=== PATIENT | female | born 1940 | race Caucasian/White ===

== ENCOUNTER 2019-08-01 14:00 | Emergency (ER) | payer OTHER ==
[~2019-08-01] VITALS: Ht 160 cm; Wt 81.6 kg
[2019-08-01] MEDS ORDERED: ONDANSETRON ODT 4 MG TAB PO ONE (19:00)
[2019-08-01] MEDS ORDERED: cloNIDine HCL 0.1 MG TAB PO ONE (19:00)
[2019-08-01] MEDS ORDERED: ACETAMINOPHEN 325 MG TAB PO ONE (19:00)
[2019-08-01 19:45] VITALS: BP 174/90
== END 2019-08-01 19:46 | disposition home or self-care (01) ==
LOC: EDBD 14:00 → ER 14:27
DX: J06.9 Acute upper respiratory infection, unspecified (principal); B34.9 Viral infection, unspecified; E11.9 Type 2 diabetes mellitus without complications; I10 Essential (primary) hypertension; Z88.5 Allergy status to narcotic agent
CPT/HCPCS: 99284; Q0162

== ENCOUNTER 2020-03-23 16:37 | Emergency (ER) | payer OTHER ==
[~2020-03-23] VITALS: Ht 162.6 cm; Wt 72.6 kg
[2020-03-23] MEDS ORDERED: hydrALAZINE HCL 25 MG TAB PO ONE (17:30)
[2020-03-23] MEDS ORDERED: ONDANSETRON HCL 4 MG/2 ML VIAL IV ONE (17:45)
[2020-03-23 18:17] LABS: Basophils # (auto) 0.1 10 ^3/uL (0-0.2); Basophils % (auto) 0.8 % (0.0-2.0); Eosinophils # (auto) 0.1 10 ^3/uL (0-0.8); Eosinophils % (auto) 0.7 % (0.0-7.0); Hematocrit 45.2 % (36.0-46.0); Hemoglobin 15.2 g/dL (12.2-16.2); Lymphocytes # (auto) 1.1 10 ^3/uL (0.4-5.4); Lymphocytes % (auto) 12.1 % (10.0-50.0); Mean Corpuscular Hemoglobin 31.1 pg (28.0-32.0); Mean Corpuscular Hgb Conc. 33.7 g/dL (32.0-36.0); Mean Corpuscular Volume 92.2 fL (80.0-100.0); Monocytes # (auto) 0.5 10 ^3/uL (0-1.3); Monocytes % (auto) 5.4 % (0.0-12.0); Neutrophils # (auto) 7.3 10 ^3/uL (1.6-8.6); Platelet Count (auto) 304 10^3/uL (140-450); Red Cell Distribution Width 13.9 % (11.8-14.3)
[2020-03-23 18:29] LABS: Urine Bacteria FEW /hpf (None Seen); Urine Blood Negative /uL (Negative); Urine Specific Gravity 1.005 (1.001-1.035); Urine WBC 2 /hpf (0 - 5)
[2020-03-23 18:32] LABS: Alanine Aminotransferase 14 U/L (13-56); Anion Gap 10 (5-15); Aspartate Aminotransferase 13 U/L (15-37); BUN/Creatinine Ratio 14.3; Blood Urea Nitrogen 13 mg/dL (7-18); Calcium 9.8 mg/dL (8.5-10.1); Carbon Dioxide 25 mmol/L (21-32); Chloride 106 mmol/L (98-107); GFR African American 77 mL/min; GFR Non-African American 64 mL/min; Glucose 130 mg/dL (74-106); Potassium 3.4 mmol/L (3.5-5.1); Sodium 141 mmol/L (136-145)
[2020-03-23 18:36] LABS: Alkaline Phosphatase 96 U/L (45-117); Bilirubin, Total 0.6 mg/dL (0.2-1.0); Total Protein 7.6 g/dL (6.4-8.2)
[2020-03-23 19:10] VITALS: BP 157/82
== END 2020-03-23 21:33 | disposition home or self-care (01) ==
LOC: EDBD 16:37 → ER 16:37
DX: I16.0 Hypertensive urgency (principal); E11.9 Type 2 diabetes mellitus without complications; I10 Essential (primary) hypertension; E78.5 Hyperlipidemia, unspecified; Z88.5 Allergy status to narcotic agent
CPT/HCPCS: 36415; 70450; 80053; 81001; 84484; 85025; 93005; 96374; 99285; J2405

== ENCOUNTER 2020-09-27 16:08 | Observation (INO) | payer OTHER ==
[~2020-09-27] VITALS: Ht 162.6 cm; Wt 83.2 kg
[2020-09-27 17:58] LABS: Basophils # (auto) 0 10 ^3/uL (0-0.2); Basophils % (auto) 0.3 % (0.0-2.0); Eosinophils # (auto) 0 10 ^3/uL (0-0.8); Hematocrit 44.9 % (36.0-46.0); Hemoglobin 14.8 g/dL (12.2-16.2); Lymphocytes % (auto) 7.1 % (10.0-50.0); Mean Corpuscular Hgb Conc. 33.1 g/dL (32.0-36.0); Mean Corpuscular Volume 90.9 fL (80.0-100.0); Monocytes # (auto) 0.8 10 ^3/uL (0-1.3); Monocytes % (auto) 5.8 % (0.0-12.0); Neutrophils # (auto) 11.7 10 ^3/uL (1.6-8.6); Neutrophils % (auto) 86.8 % (37.0-80.0); Nucleated Red Blood Cells % 0.1 %; Platelet Count (auto) 306 10^3/uL (140-450); Red Blood Cells 4.94 10^6/uL (4.0-5.20); Red Cell Distribution Width 13.9 % (11.8-14.3); White Blood Cell 13.5 10^3/uL (4.4-10.8)
[2020-09-27] MEDS ORDERED: SODIUM CHLORIDE 0.9% 500 ML IV ONE (18:15)
[2020-09-27 18:19] LABS: Albumin 3.7 g/dL (3.4-5.0); Anion Gap 11 (5-15); Blood Alcohol < 3.0 mg/dL (0-5); Blood Urea Nitrogen 24 mg/dL (7-18); Calcium 9.7 mg/dL (8.5-10.1); Carbon Dioxide 24 mmol/L (21-32); Chloride 102 mmol/L (98-107); Glucose 179 mg/dL (74-106); Magnesium 2.1 mg/dL (1.6-2.6); Potassium 3.4 mmol/L (3.5-5.1); Salicylate < 1.7 mg/dL (2.8-20.0); Sodium 137 mmol/L (136-145)
[2020-09-27 18:24] LABS: Alanine Aminotransferase 21 U/L (13-56); Alkaline Phosphatase 88 U/L (45-117); Aspartate Aminotransferase 18 U/L (15-37); BUN/Creatinine Ratio 23.3; Bilirubin, Total 0.7 mg/dL (0.2-1.0); GFR African American 66 mL/min; GFR Non-African American 55 mL/min; Total Protein 7.2 g/dL (6.4-8.2)
[2020-09-27 18:27] LABS: Acetaminophen < 2.0 ug/mL (10-30)
[2020-09-27] MEDS ORDERED: ONDANSETRON HCL 4 MG/2 ML VIAL IV ONE (19:30)
[2020-09-27] MEDS ORDERED: ONDANSETRON HCL 4 MG/2 ML VIAL ONE (19:31)
[2020-09-27] MEDS ORDERED: SODIUM CHLORIDE 0.9% 1,000 ML IV ONE (20:30)
[2020-09-27] MEDS ORDERED: NITROGLYCERIN 0.4 MG SL TAB SL PRN (20:30)
[2020-09-27 23:33] LABS: Urine Bacteria MANY /hpf (None Seen); Urine Blood Negative /uL (Negative); Urine Hyaline Cast MANY /lpf (0 - 2); Urine Mucus FEW (None Seen); Urine Specific Gravity 1.026 (1.001-1.035); Urine WBC 15 /hpf (0 - 5)
[2020-09-27 23:48] LABS: Alcohol, Urine < 3.0 mg/dL (0-10); Barbiturate Scree,Urine NEGATIVE (NEGATIVE); Benzodiazephine Screen, Urine NEGATIVE (NEGATIVE); Cannabinoid Screen, Urine NEGATIVE (NEGATIVE); Cocaine Screen, Urine NEGATIVE (NEGATIVE); Opiate Scree,Urine NEGATIVE (NEGATIVE); Phencyclidine Screen, Urine NEGATIVE (NEGATIVE)
[2020-09-27 23:59] LABS: Amphetamine Screen, Urine NEGATIVE (NEGATIVE)
[2020-09-28] MEDS ORDERED: cloNIDine HCL 0.1 MG TAB PO ONE (06:45)
[2020-09-28 09:16] VITALS: BP 159/74
[2020-09-28] MEDS: cefTRIAXone 1GM/50ML D5W 50 ML IV SCH (10:00)
[2020-09-28] MEDS: SOD CHL 0.45% 1,000 ML IV SCH (10:01)
[2020-09-28 11:30] VITALS: BP 159/74
[2020-09-28 12:46] VITALS: BP 150/64
[2020-09-28] MEDS ORDERED: PRAV20TA3 PO (12:54)
[2020-09-28] MEDS ORDERED: METO25TA93 PO (12:54)
[2020-09-28] MEDS ORDERED: METF-370 PO (12:54)
[2020-09-28] MEDS ORDERED: VALS40TA2 PO (12:54)
[2020-09-28] MEDS ORDERED: FLUO-125 PO (12:54)
[2020-09-28] MEDS ORDERED: METO1TAB77 PO (12:54)
[2020-09-28] MEDS ORDERED: LISI-648 PO (12:54)
[2020-09-28 16:50] VITALS: BP 161/79
[2020-09-28 21:33] VITALS: BP 194/83
[2020-09-28] MEDS: hydrALAZINE HCL 20 MG/ML VL IV PRN (21:55)
[2020-09-28 23:32] VITALS: BP 154/74
[2020-09-29] MEDS: hydrALAZINE HCL 20 MG/ML VL IV PRN ×2 (04:33→13:37)
[2020-09-29] MEDS: SOD CHL 0.45% 1,000 ML IV SCH (04:45)
[2020-09-29 05:00] VITALS: BP 182/79
[2020-09-29] MEDS ORDERED: ACETAMINOPHEN 325 MG TAB PO PRN (05:30)
[2020-09-29 05:44] VITALS: BP 157/77
[2020-09-29 07:19] LABS: Basophils # (auto) 0.1 10 ^3/uL (0-0.2); Basophils % (auto) 0.9 % (0.0-2.0); Eosinophils # (auto) 0.1 10 ^3/uL (0-0.8); Eosinophils % (auto) 1.2 % (0.0-7.0); Hematocrit 43.8 % (36.0-46.0); Hemoglobin 15.1 g/dL (12.2-16.2); Lymphocytes # (auto) 2.4 10 ^3/uL (0.4-5.4); Lymphocytes % (auto) 23.9 % (10.0-50.0); Mean Corpuscular Hemoglobin 31.3 pg (28.0-32.0); Mean Corpuscular Hgb Conc. 34.5 g/dL (32.0-36.0); Mean Corpuscular Volume 90.7 fL (80.0-100.0); Monocytes % (auto) 9.5 % (0.0-12.0); Neutrophils # (auto) 6.4 10 ^3/uL (1.6-8.6); Neutrophils % (auto) 64.5 % (37.0-80.0); Nucleated Red Blood Cells % 0.1 %; Platelet Count (auto) 291 10^3/uL (140-450); Red Blood Cells 4.83 10^6/uL (4.0-5.20); Red Cell Distribution Width 13.8 % (11.8-14.3)
[2020-09-29 07:42] LABS: Potassium 3.8 mmol/L (3.5-5.1)
[2020-09-29 07:47] LABS: BUN/Creatinine Ratio 29.8; Calcium 9.3 mg/dL (8.5-10.1)
[2020-09-29 09:00] VITALS: BP 160/75
[2020-09-29] MEDS: cefTRIAXone 1GM/50ML D5W 50 ML IV SCH (11:35)
[2020-09-29] MEDS ORDERED: ONDANSETRON HCL 4 MG/2 ML VIAL IV PRN (12:30)
[2020-09-29 13:00] VITALS: BP 160/75
[2020-09-29 15:24] VITALS: BP 160/75
== END 2020-09-29 17:00 | disposition home health service (06) ==
LOC: EDBD 16:08 → ER 16:08 → TELE 20:29 → INTOOBSV 20:29 → TELE-WESTW 09-28 08:59
PROVIDERS: ADMIT Internal Medicine; ATTEND Internal Medicine
DX: T44.7X2A Poisoning by beta-adrenoreceptor antagonists, intentional self-harm, initial encounter (principal); Z20.822 Contact with and (suspected) exposure to COVID-19; E78.5 Hyperlipidemia, unspecified; I10 Essential (primary) hypertension; F32.9 Major depressive disorder, single episode, unspecified; E11.9 Type 2 diabetes mellitus without complications; R00.1 Bradycardia, unspecified; Z91.5 Personal history of self-harm; Z79.899 Other long term (current) drug therapy; Z90.12 Acquired absence of left breast and nipple
CPT/HCPCS: 36415; 80048; 80053; 80307; 80320; 80329; 81001; 83735; 85025; 87040; 87086; 87426; 93005; 96361; 96365; 96366; 96375; 96376; 99284; G0378; J0360; J0696; J2405; 96374

== ENCOUNTER 2022-03-31 01:24 | Inpatient (IN) | payer OTHER ==
[~2022-03-31] VITALS: Ht 160 cm; Wt 71.8 kg
[~2022-03-31 01:24] MED LIST: FLUO-125 PO; LISI-716 PO; METF-370 PO; METO25TA93 PO; PRAV20TA3 PO; VALS40TA2 PO
[2022-03-31 02:16] LABS: Basophils # (auto) 0.1 10 ^3/uL (0-0.2); Basophils % (auto) 0.6 % (0.0-2.0); Eosinophils # (auto) 0 10 ^3/uL (0-0.8); Eosinophils % (auto) 0.1 % (0.0-7.0); Hematocrit 48.4 % (36.0-46.0); Hemoglobin 16.1 g/dL (12.2-16.2); Lymphocytes # (auto) 0.3 10 ^3/uL (0.4-5.4); Lymphocytes % (auto) 1.7 % (10.0-50.0); Mean Corpuscular Hemoglobin 31.6 pg (28.0-32.0); Mean Corpuscular Hgb Conc. 33.2 g/dL (32.0-36.0); Mean Corpuscular Volume 95.1 fL (80.0-100.0); Monocytes % (auto) 5.8 % (0.0-12.0); Neutrophils # (auto) 15.8 10 ^3/uL (1.6-8.6); Neutrophils % (auto) 91.8 % (37.0-80.0); Red Blood Cells 5.09 10^6/uL (4.0-5.20); Red Cell Distribution Width 14.5 % (11.8-14.3); White Blood Cell 17.2 10^3/uL (4.4-10.8)
[2022-03-31 02:40] LABS: Albumin 4.2 g/dL (3.4-5.0); Calcium 10.9 mg/dL (8.5-10.1); Potassium 3.6 mmol/L (3.5-5.1)
[2022-03-31 02:44] LABS: BUN/Creatinine Ratio 25.6; Bilirubin, Total 0.4 mg/dL (0.2-1.0); Total Protein 8.1 g/dL (6.4-8.2)
[2022-03-31] MEDS ORDERED: ONDANSETRON HCL 4 MG/2 ML VIAL IV ONE (03:15)
[2022-03-31] MEDS ORDERED: diphenhdrAMINE HCL 50 MG/1 ML VL IV ONE (05:00)
[2022-03-31] MEDS ORDERED: METOCLOPRAMIDE HCL 5MG/ml INJ 2ml VIAL IV ONE (05:00)
[2022-03-31] MEDS ORDERED: diphenhdrAMINE HCL 50 MG/1 ML VL ONE (05:02)
[2022-03-31] MEDS ORDERED: METOCLOPRAMIDE HCL 5MG/ml INJ 2ml VIAL ONE (05:03)
[2022-03-31] MEDS ORDERED: LABETALOL HCL 5 MG/ML 4ML SYRINGE IV ONE (05:45)
[2022-03-31] MEDS ORDERED: HYDR-4902 PO (11:32)
[2022-03-31] MEDS ORDERED: SODIUM CHLORIDE 0.9% 1,000 ML IV ONE ×2 (12:15→13:15)
[2022-03-31] MEDS ORDERED: DEXTROSE (50%) 50ML SYRG IV PRN (12:45)
[2022-03-31] MEDS: FLUoxetine HCL 20 MG CAP PO SCH (13:05)
[2022-03-31] MEDS: METOPROLOL TARTRATE 25 MG TAB PO SCH (13:06)
[2022-03-31 13:28] LABS: BUN/Creatinine Ratio 20.8; Calcium 9.9 mg/dL (8.5-10.1); Potassium 4.2 mmol/L (3.5-5.1)
[2022-03-31] MEDS: cefTRIAXone 1GM/50ML D5W 50 ML IV SCH (15:47)
[2022-03-31] MEDS ORDERED: GASTROGRAFIN 120 ML SOL ONE (16:11)
[2022-03-31] MEDS: ACCU-CHEK COMFORT CURVE STRIP VI SCH ×2 (18:04→22:00)
[2022-03-31] MEDS: InsuLIN REG 1unit/0.01ml Soln (100units/ml) SC SCH (18:24)
[2022-03-31] MEDS ORDERED: PRAVASTATIN SODIUM 20 MG TAB PO SCH (22:00)
[2022-03-31] MEDS ORDERED: InsuLIN REG 1unit/0.01ml Soln (100units/ml) SC SCH (22:00)
[2022-04-01] MEDS: hydrALAZINE HCL 20 MG/ML VL IV PRN ×2 (03:13→12:35)
[2022-04-01 05:16] VITALS: BP 154/65
[2022-04-01] MEDS ORDERED: METF-869 PO (05:37)
[2022-04-01] MEDS ORDERED: VALS1TAB57 PO (05:37)
[2022-04-01] MEDS ORDERED: FLUO20CA90 PO (05:37)
[2022-04-01] MEDS: ACCU-CHEK COMFORT CURVE STRIP VI SCH ×2 (06:19→11:30)
[2022-04-01] MEDS: InsuLIN REG 1unit/0.01ml Soln (100units/ml) SC SCH ×2 (06:22→12:35)
[2022-04-01 08:46] VITALS: BP 157/74
[2022-04-01] MEDS: cefTRIAXone 1GM/50ML D5W 50 ML IV SCH (11:10)
[2022-04-01] MEDS: FLUoxetine HCL 20 MG CAP PO SCH (11:10)
[2022-04-01] MEDS: METOPROLOL TARTRATE 25 MG TAB PO SCH (11:11)
[2022-04-01 11:50] LABS: Hematocrit 47.7 % (36.0-46.0); Mean Corpuscular Hemoglobin 30.8 pg (28.0-32.0); Mean Corpuscular Hgb Conc. 33.5 g/dL (32.0-36.0); Red Blood Cells 5.18 10^6/uL (4.0-5.20); Red Cell Distribution Width 14.6 % (11.8-14.3); White Blood Cell 12.9 10^3/uL (4.4-10.8)
[2022-04-01 11:53] LABS: Basophils % (manual) 0 (0.0-2.0); Blast Cells 0; Eosinophils % (manual) 0 (0-7); Promyelocytes % 0; Reactive Lymphocytes 0
[2022-04-01 12:13] LABS: Anion Gap 11 (5-15); BUN/Creatinine Ratio 29.4; Blood Urea Nitrogen 32 mg/dL (7-18); Carbon Dioxide 20 mmol/L (21-32); Chloride 110 mmol/L (98-107); GFR African American 62 mL/min; GFR Non-African American 51 mL/min; Glucose 215 mg/dL (74-106); Potassium 4.4 mmol/L (3.5-5.1); Sodium 141 mmol/L (136-145)
[2022-04-01 12:14] LABS: Calcium 9.6 mg/dL (8.5-10.1)
[2022-04-01 12:38] LABS: Band Neutrophils % (manual) 3; Lymphocytes % (manual) 11 (10.0-50.0); Metamyelocytes % 2; Monocytes % (manual) 5 (0-12); Myelocytes % 2
[2022-04-01 13:30] VITALS: BP 172/70
[2022-04-01] MEDS ORDERED: LEVO750T64 PO (13:36)
[2022-04-01 14:05] LABS: Urine Bacteria FEW /hpf (None Seen); Urine Blood 1+ /uL (Negative); Urine Hyaline Cast FEW /lpf (0 - 2); Urine Mucus FEW (None Seen); Urine Specific Gravity 1.029 (1.001-1.035); Urine WBC 30 /hpf (0 - 5)
== END 2022-04-01 14:20 | disposition left against medical advice (07) | DRG 389 ==
LOC: ER 01:24 → EDBD 01:24 → OVERFLOW 12:46 → WEST WING 04-01 02:20
PROVIDERS: ADMIT Internal Medicine; ATTEND Internal Medicine
DX: K56.609 Unspecified intestinal obstruction, unspecified as to partial versus complete obstruction (principal); N17.9 Acute kidney failure, unspecified; E78.5 Hyperlipidemia, unspecified; F32.A Depression, unspecified; I10 Essential (primary) hypertension; G83.9 Paralytic syndrome, unspecified; Z20.822 Contact with and (suspected) exposure to COVID-19; E11.9 Type 2 diabetes mellitus without complications; Z53.29 Procedure and treatment not carried out because of patient's decision for other reasons; Z80.8 Family history of malignant neoplasm of other organs or systems; Z81.8 Family history of other mental and behavioral disorders; Z82.49 Family history of ischemic heart disease and other diseases of the circulatory system; Z93.3 Colostomy status; Z88.5 Allergy status to narcotic agent
CPT/HCPCS: 36415; 36600; 71045; 74176; 74250; 80048; 80053; 81001; 82010; 82805; 82962; 83690; 84484; 85007; 85025; 85027; 87426; 93005; 96361; 96365; 96375; G0378; J0696; J1815; J2405; J3490

== ENCOUNTER 2023-01-04 03:18 | Inpatient (IN) | payer OTHER ==
[~2023-01-04] VITALS: Ht 160 cm; Wt 95.5 kg
[~2023-01-04 03:18] MED LIST changes: +FLUO20CA90 PO; +LEVO750T40 PO; -LISI-716 PO; +LISI10TA34 PO; +METF-869 PO; +VALS1TAB57 PO
[2023-01-04 04:30] LABS: Basophils # (auto) 0.1 10 ^3/uL (0-0.2); Basophils % (auto) 0.6 % (0.0-2.0); Eosinophils # (auto) 0 10 ^3/uL (0-0.8); Eosinophils % (auto) 0.2 % (0.0-7.0); Hematocrit 45.3 % (36.0-46.0); Hemoglobin 15.1 g/dL (12.2-16.2); Lymphocytes # (auto) 0.6 10 ^3/uL (0.4-5.4); Lymphocytes % (auto) 3.7 % (10.0-50.0); Mean Corpuscular Hemoglobin 30.5 pg (28.0-32.0); Mean Corpuscular Hgb Conc. 33.3 g/dL (32.0-36.0); Mean Corpuscular Volume 91.7 fL (80.0-100.0); Monocytes # (auto) 0.5 10 ^3/uL (0-1.3); Monocytes % (auto) 3.4 % (0.0-12.0); Neutrophils # (auto) 13.9 10 ^3/uL (1.6-8.6); Neutrophils % (auto) 92.1 % (37.0-80.0); Red Blood Cells 4.94 10^6/uL (4.0-5.20); Red Cell Distribution Width 13.6 % (11.8-14.3)
[2023-01-04 04:41] LABS: Albumin 3.7 g/dL (3.4-5.0); Calcium 9.6 mg/dL (8.5-10.1); Potassium 3.6 mmol/L (3.5-5.1)
[2023-01-04 04:45] LABS: BUN/Creatinine Ratio 29.3 (10.0-20.0); Bilirubin, Total 0.4 mg/dL (0.2-1.0); Total Protein 7.5 g/dL (6.4-8.2)
[2023-01-04] MEDS ORDERED: ONDANSETRON HCL 4 MG/2 ML VIAL IV ONE (07:00)
[2023-01-04] MEDS ORDERED: SOD CHL 0.45% 1,000 ML IV ONE (07:15)
[2023-01-04] MEDS ORDERED: NITROGLYCERIN 0.4 MG SL TAB SL PRN (07:15)
[2023-01-04] MEDS ORDERED: DEXTROSE (50%) 50ML SYRG IV PRN (07:30)
[2023-01-04 07:42] LABS: INR 0.99 (0.9-1.15)
[2023-01-04 08:30] VITALS: PULSE 92; RESP 22
[2023-01-04] MEDS: CIPROFLOXACIN 400MG/200ML 200 ML IV SCH (11:40)
[2023-01-04] MEDS: ACCU-CHEK COMFORT CURVE STRIP VI SCH ×2 (12:16→18:00)
[2023-01-04] MEDS: InsuLIN REG 1unit/0.01ml Soln (100units/ml) SC SCH ×3 (12:20→23:31)
[2023-01-04] MEDS: ONDANSETRON HCL 4 MG/2 ML VIAL IV PRN (12:22)
[2023-01-04] MEDS: hydrALAZINE HCL 20 MG/ML VL IV PRN (12:23)
[2023-01-04 13:20] VITALS: BP 161/84; PULSE 95; RESP 22; TEMP 98.1; O2SAT 99
[2023-01-04] MEDS ORDERED: AMLO1TAB22 PO (13:32)
[2023-01-04] MEDS ORDERED: LABETALOL HCL 5 MG/ML 4ML SYRINGE IV PRN (14:30)
[2023-01-04] MEDS: LORazepam 2MG/ML-1ML VIAL IV PRN (15:17)
[2023-01-04] MEDS: metroNIDAZOLE 500MG/100ML 100 ML IV SCH ×2 (15:17→23:32)
[2023-01-04 16:54] VITALS: BP 106/56; PULSE 92; RESP 20; TEMP 98.6; O2SAT 97
[2023-01-04 22:00] VITALS: BP 151/79; PULSE 92; RESP 16; TEMP 97.5; O2SAT 98
[2023-01-05] MEDS: CIPROFLOXACIN 400MG/200ML 200 ML IV SCH ×3 (00:34→23:55)
[2023-01-05 05:00] VITALS: BP 154/81; PULSE 82; RESP 16; TEMP 97.5; O2SAT 98
[2023-01-05] MEDS: ACCU-CHEK COMFORT CURVE STRIP VI SCH ×4 (06:26→17:53)
[2023-01-05 06:38] LABS: Basophils # (auto) 0.1 10 ^3/uL (0-0.2); Basophils % (auto) 0.4 % (0.0-2.0); Eosinophils # (auto) 0 10 ^3/uL (0-0.8); Eosinophils % (auto) 0.2 % (0.0-7.0); Hematocrit 45.7 % (36.0-46.0); Hemoglobin 15.2 g/dL (12.2-16.2); Lymphocytes # (auto) 0.8 10 ^3/uL (0.4-5.4); Lymphocytes % (auto) 5.4 % (10.0-50.0); Mean Corpuscular Hemoglobin 30.6 pg (28.0-32.0); Mean Corpuscular Hgb Conc. 33.3 g/dL (32.0-36.0); Monocytes # (auto) 1.4 10 ^3/uL (0-1.3); Monocytes % (auto) 9.4 % (0.0-12.0); Neutrophils # (auto) 12.8 10 ^3/uL (1.6-8.6); Neutrophils % (auto) 84.6 % (37.0-80.0); Nucleated Red Blood Cells % 0.2 %; Red Blood Cells 4.96 10^6/uL (4.0-5.20); Red Cell Distribution Width 14.2 % (11.8-14.3); White Blood Cell 15.2 10^3/uL (4.4-10.8)
[2023-01-05] MEDS: InsuLIN REG 1unit/0.01ml Soln (100units/ml) SC SCH ×4 (06:38→23:19)
[2023-01-05 06:52] LABS: Potassium 3.3 mmol/L (3.5-5.1)
[2023-01-05 07:00] LABS: Albumin 3.6 g/dL (3.4-5.0); BUN/Creatinine Ratio 35.2 (10.0-20.0); Bilirubin, Total 0.8 mg/dL (0.2-1.0); Calcium 9.8 mg/dL (8.5-10.1); Total Protein 7.3 g/dL (6.4-8.2)
[2023-01-05 07:30] VITALS: BP 191/77; TEMP 36.4
[2023-01-05 09:00] VITALS: BP 178/98; PULSE 80; RESP 18; TEMP 97.9; O2SAT 98
[2023-01-05] MEDS ORDERED: POTASSIUM CHL 20MEQ/100ML 100 ML IV ONE (09:30)
[2023-01-05] MEDS: PANTOPRAZOLE 40 MG/10 ML VIAL INJ IV SCH (10:14)
[2023-01-05] MEDS: metroNIDAZOLE 500MG/100ML 100 ML IV SCH ×2 (10:15→17:52)
[2023-01-05] MEDS: SODIUM CHLORIDE 0.9% 1,000 ML IV SCH (10:16)
[2023-01-05] MEDS ORDERED: GASTROGRAFIN 120 ML SOL ONE (10:32)
[2023-01-05 13:00] VITALS: BP 132/94; PULSE 71; RESP 16; TEMP 97.8; O2SAT 99
[2023-01-05] MEDS: LORazepam 2MG/ML-1ML VIAL IV PRN (15:05)
[2023-01-05 17:00] VITALS: BP 119/53; PULSE 77; RESP 18; TEMP 97.9; O2SAT 98
[2023-01-05] MEDS: hydrALAZINE HCL 20 MG/ML VL IV PRN (21:59)
[2023-01-05 22:00] VITALS: BP 175/64; PULSE 75; RESP 16; TEMP 98.2; O2SAT 98
[2023-01-06] VITALS (17 sets, daily range): BP systolic 118–158; BP diastolic 66–82; PULSE 78–113; RESP 13–31; TEMP 36.7; O2SAT 90–99
[2023-01-06] MEDS ORDERED: ACETAMINOPHEN 650 MG RECT SUPP PR PRN (00:30)
[2023-01-06] MEDS: LORazepam 2MG/ML-1ML VIAL IV PRN ×2 (01:05→09:13)
[2023-01-06] MEDS: metroNIDAZOLE 500MG/100ML 100 ML IV SCH (01:13)
[2023-01-06] MEDS: SODIUM CHLORIDE 0.9% 1,000 ML IV SCH (04:35)
[2023-01-06] MEDS: hydrALAZINE HCL 20 MG/ML VL IV PRN (04:41)
[2023-01-06] MEDS: ACCU-CHEK COMFORT CURVE STRIP VI SCH ×4 (05:05→17:26)
[2023-01-06] MEDS: InsuLIN REG 1unit/0.01ml Soln (100units/ml) SC SCH ×3 (05:12→17:27)
[2023-01-06] MEDS: ONDANSETRON HCL 4 MG/2 ML VIAL IV PRN (06:19)
[2023-01-06] MEDS ORDERED: POTASSIUM CHLORIDE 40 MEQ, LIDOCAINE 1% (LOCAL ANESTH.) 4 ML in SODIUM CHL 0.9% 250 ML IV STA (07:50)
[2023-01-06] MEDS ORDERED: D5W/SOD CHL 0.45%/KCL 40MEQ 1,000 ML IV SCH (08:00)
[2023-01-06] MEDS ORDERED: metroNIDAZOLE 500MG/100ML 100 ML IV SCH ×2 (09:00→14:00)
[2023-01-06 09:04] LABS: BUN/Creatinine Ratio 37.4 (10.0-20.0); Calcium 10.1 mg/dL (8.5-10.1)
[2023-01-06] MEDS: PANTOPRAZOLE 40 MG/10 ML VIAL INJ IV SCH (09:13)
[2023-01-06 09:19] LABS: Basophils # (auto) 0.1 10 ^3/uL (0-0.2); Basophils % (auto) 0.4 % (0.0-2.0); Eosinophils # (auto) 0 10 ^3/uL (0-0.8); Hematocrit 46.8 % (36.0-46.0); Hemoglobin 15.8 g/dL (12.2-16.2); Lymphocytes # (auto) 0.8 10 ^3/uL (0.4-5.4); Lymphocytes % (auto) 5.2 % (10.0-50.0); Mean Corpuscular Hemoglobin 31.1 pg (28.0-32.0); Mean Corpuscular Hgb Conc. 33.9 g/dL (32.0-36.0); Mean Corpuscular Volume 91.9 fL (80.0-100.0); Monocytes # (auto) 1.1 10 ^3/uL (0-1.3); Monocytes % (auto) 6.9 % (0.0-12.0); Neutrophils # (auto) 13.8 10 ^3/uL (1.6-8.6); Neutrophils % (auto) 87.5 % (37.0-80.0); Nucleated Red Blood Cells % 0.1 %; Red Blood Cells 5.09 10^6/uL (4.0-5.20); Red Cell Distribution Width 13.8 % (11.8-14.3); White Blood Cell 15.7 10^3/uL (4.4-10.8)
[2023-01-06] MEDS ORDERED: fentaNYL CITRATE 100 MCG/2 ML VL ONE (10:31)
[2023-01-06] MEDS ORDERED: PHENYLEPHRINE HCL 10 MG/ML VL ONE (10:31)
[2023-01-06] MEDS ORDERED: DexAMETHasone SOD PHOS 10MG/1ML VIAL INJ ONE (10:31)
[2023-01-06] MEDS ORDERED: HYDROmorphone HCL 2 MG/ML VL/or syr ONE (10:31)
[2023-01-06] MEDS ORDERED: GLYCOPYRROLATE 0.2 MG/ML 1ML VIAL ONE (10:31)
[2023-01-06] MEDS ORDERED: ePHEDrine SULFATE 50 MG/ML AMP ONE (10:31)
[2023-01-06] MEDS ORDERED: MIDAZOLAM HCL 2MG/2ML 2ml VIAL (1mg/ml) ONE (10:31)
[2023-01-06] MEDS ORDERED: ONDANSETRON HCL 4 MG/2 ML VIAL ONE (10:32)
[2023-01-06] MEDS ORDERED: PROPOFOL 10 MG/ML 20 ML IV ONE (10:32)
[2023-01-06] MEDS ORDERED: ETOMIDATE (2MG/ML) 20ML VIAL IV ONE (10:32)
[2023-01-06] MEDS ORDERED: KETAMINE HCL 10 ML ONE (10:32)
[2023-01-06] MEDS ORDERED: LIDOCAINE 2% (LOCAL ANESTH.) PF 5ml SDV ONE (10:32)
[2023-01-06] MEDS ORDERED: ROCURONIUM 10MG/ML 10ML VIAL IV ONE (10:33)
[2023-01-06] MEDS ORDERED: POVIDONE IODINE 10 % TOPICAL OINT 30GM TOP ONE (11:15)
[2023-01-06] MEDS: CIPROFLOXACIN 400MG/200ML 200 ML IV SCH (12:00)
[2023-01-06] MEDS ORDERED: SUGAMMADEX 200mg/2ml Vial (100MG/ML) IV ONE (13:10)
[2023-01-06] MEDS ORDERED: ceFAZolin 1GM/50ML 50 ML IV SCH (14:00)
[2023-01-06] MEDS ORDERED: SODIUM CHLORIDE 0.9% 1,000 ML IV ONE (17:00)
[2023-01-06] MEDS: D5W/SOD CHL 0.45%/KCL 20MEQ 1,000 ML IV SCH (17:29)
[2023-01-06] MEDS: ceFAZolin 1GM/50ML 50 ML IV SCH (23:52)
[2023-01-07] VITALS (36 sets, daily range): BP systolic 110–177; BP diastolic 52–84; PULSE 73–98; RESP 11–20; TEMP 98.1–99; O2SAT 92–100
[2023-01-07] MEDS: ACCU-CHEK COMFORT CURVE STRIP VI SCH ×5 (00:15→23:59)
[2023-01-07] MEDS: InsuLIN REG 1unit/0.01ml Soln (100units/ml) SC SCH ×4 (00:21→17:34)
[2023-01-07] MEDS: metroNIDAZOLE 500MG/100ML 100 ML IV SCH ×4 (00:24→23:59)
[2023-01-07] MEDS: CIPROFLOXACIN 400MG/200ML 200 ML IV SCH ×3 (00:32→23:58)
[2023-01-07] MEDS: HYDROmorphone HCL 2 MG/ML VL/or syr IV PRN ×3 (01:30→21:26)
[2023-01-07] MEDS: D5W/SOD CHL 0.45%/KCL 20MEQ 1,000 ML IV SCH ×3 (01:30→15:36)
[2023-01-07] MEDS: ceFAZolin 1GM/50ML 50 ML IV SCH ×3 (06:38→23:58)
[2023-01-07] MEDS: PANTOPRAZOLE 40 MG/10 ML VIAL INJ IV SCH (07:56)
[2023-01-07 15:53] LABS: Basophils # (auto) 0 10 ^3/uL (0-0.2); Basophils % (auto) 0.3 % (0.0-2.0); Eosinophils # (auto) 0 10 ^3/uL (0-0.8); Eosinophils % (auto) 0.1 % (0.0-7.0); Hematocrit 43.3 % (36.0-46.0); Hemoglobin 14.3 g/dL (12.2-16.2); Lymphocytes # (auto) 0.8 10 ^3/uL (0.4-5.4); Lymphocytes % (auto) 5.9 % (10.0-50.0); Mean Corpuscular Volume 94.1 fL (80.0-100.0); Monocytes # (auto) 1.4 10 ^3/uL (0-1.3); Monocytes % (auto) 10.7 % (0.0-12.0); Neutrophils # (auto) 10.9 10 ^3/uL (1.6-8.6); Nucleated Red Blood Cells % 0.1 %; Red Cell Distribution Width 14.2 % (11.8-14.3); White Blood Cell 13.1 10^3/uL (4.4-10.8)
[2023-01-07] MEDS: ONDANSETRON HCL 4 MG/2 ML VIAL IV PRN (21:25)
[2023-01-08] VITALS (11 sets, daily range): BP systolic 112–184; BP diastolic 53–82; PULSE 69–89; RESP 12–20; TEMP 97.5–99.3; O2SAT 92–99
[2023-01-08] MEDS: D5W/SOD CHL 0.45%/KCL 20MEQ 1,000 ML IV SCH ×3 (00:58→17:23)
[2023-01-08 05:28] LABS: Basophils # (auto) 0.1 10 ^3/uL (0-0.2); Basophils % (auto) 0.6 % (0.0-2.0); Eosinophils # (auto) 0 10 ^3/uL (0-0.8); Eosinophils % (auto) 0.2 % (0.0-7.0); Hematocrit 39.2 % (36.0-46.0); Hemoglobin 13.2 g/dL (12.2-16.2); Lymphocytes # (auto) 1.1 10 ^3/uL (0.4-5.4); Lymphocytes % (auto) 10.2 % (10.0-50.0); Mean Corpuscular Hemoglobin 31.6 pg (28.0-32.0); Mean Corpuscular Hgb Conc. 33.7 g/dL (32.0-36.0); Mean Corpuscular Volume 93.6 fL (80.0-100.0); Monocytes # (auto) 1.2 10 ^3/uL (0-1.3); Monocytes % (auto) 11.2 % (0.0-12.0); Neutrophils # (auto) 8.4 10 ^3/uL (1.6-8.6); Neutrophils % (auto) 77.8 % (37.0-80.0); Nucleated Red Blood Cells % 0.1 %; Red Blood Cells 4.18 10^6/uL (4.0-5.20); White Blood Cell 10.8 10^3/uL (4.4-10.8)
[2023-01-08 06:07] LABS: Albumin 2.5 g/dL (3.4-5.0); Calcium 8.8 mg/dL (8.5-10.1)
[2023-01-08 06:12] LABS: BUN/Creatinine Ratio 24.7 (10.0-20.0); Bilirubin, Total 0.5 mg/dL (0.2-1.0); Total Protein 5.6 g/dL (6.4-8.2)
[2023-01-08] MEDS: ACCU-CHEK COMFORT CURVE STRIP VI SCH ×3 (06:20→18:56)
[2023-01-08] MEDS: InsuLIN REG 1unit/0.01ml Soln (100units/ml) SC SCH ×4 (06:21→18:56)
[2023-01-08] MEDS: ceFAZolin 1GM/50ML 50 ML IV SCH (06:21)
[2023-01-08] MEDS: metroNIDAZOLE 500MG/100ML 100 ML IV SCH (07:53)
[2023-01-08] MEDS: hydrALAZINE HCL 20 MG/ML VL IV PRN (08:54)
[2023-01-08] MEDS: PANTOPRAZOLE 40 MG/10 ML VIAL INJ IV SCH (09:32)
[2023-01-08] MEDS: CIPROFLOXACIN 400MG/200ML 200 ML IV SCH (12:02)
[2023-01-08] MEDS: PIPERACILLIN-TAZOB 3.375GM 100 ML IV SCH ×2 (14:23→21:28)
[2023-01-08] MEDS: ONDANSETRON HCL 4 MG/2 ML VIAL IV PRN (14:26)
[2023-01-09] VITALS (31 sets, daily range): BP systolic 114–167; BP diastolic 53–76; PULSE 64–84; RESP 13–24; TEMP 98.2–99; O2SAT 93–100
[2023-01-09] MEDS: ACCU-CHEK COMFORT CURVE STRIP VI SCH ×5 (00:21→23:51)
[2023-01-09] MEDS: InsuLIN REG 1unit/0.01ml Soln (100units/ml) SC SCH ×5 (00:22→23:50)
[2023-01-09] MEDS: hydrALAZINE HCL 20 MG/ML VL IV PRN ×2 (00:25→16:56)
[2023-01-09] MEDS: D5W/SOD CHL 0.45%/KCL 20MEQ 1,000 ML IV SCH ×3 (00:47→16:55)
[2023-01-09] MEDS: LORazepam 2MG/ML-1ML VIAL IV PRN (03:56)
[2023-01-09 04:58] LABS: Basophils # (auto) 0 10 ^3/uL (0-0.2); Basophils % (auto) 0.4 % (0.0-2.0); Eosinophils # (auto) 0.1 10 ^3/uL (0-0.8); Eosinophils % (auto) 0.8 % (0.0-7.0); Hematocrit 38.1 % (36.0-46.0); Hemoglobin 12.6 g/dL (12.2-16.2); Lymphocytes # (auto) 1.2 10 ^3/uL (0.4-5.4); Lymphocytes % (auto) 11.1 % (10.0-50.0); Mean Corpuscular Hemoglobin 31.1 pg (28.0-32.0); Mean Corpuscular Hgb Conc. 33.2 g/dL (32.0-36.0); Mean Corpuscular Volume 93.8 fL (80.0-100.0); Monocytes % (auto) 9.5 % (0.0-12.0); Neutrophils # (auto) 8.5 10 ^3/uL (1.6-8.6); Neutrophils % (auto) 78.2 % (37.0-80.0); Red Blood Cells 4.06 10^6/uL (4.0-5.20); Red Cell Distribution Width 13.5 % (11.8-14.3); White Blood Cell 10.9 10^3/uL (4.4-10.8)
[2023-01-09] MEDS: PIPERACILLIN-TAZOB 3.375GM 100 ML IV SCH ×3 (05:58→22:02)
[2023-01-09] MEDS: PANTOPRAZOLE 40 MG/10 ML VIAL INJ IV SCH (08:30)
[2023-01-09] MEDS ORDERED: INSREGI SC (12:21)
[2023-01-09] MEDS: HYDROmorphone HCL 2 MG/ML VL/or syr IV PRN (20:25)
[2023-01-10] MEDS: D5W/SOD CHL 0.45%/KCL 20MEQ 1,000 ML IV SCH ×3 (03:00→17:45)
[2023-01-10] MEDS: hydrALAZINE HCL 20 MG/ML VL IV PRN ×2 (04:56→17:42)
[2023-01-10 05:00] VITALS: BP 179/80; PULSE 67; RESP 18; TEMP 98.1; O2SAT 94
[2023-01-10] MEDS: LORazepam 2MG/ML-1ML VIAL IV PRN (05:04)
[2023-01-10 05:37] LABS: Basophils # (auto) 0.1 10 ^3/uL (0-0.2); Basophils % (auto) 0.6 % (0.0-2.0); Eosinophils # (auto) 0.2 10 ^3/uL (0-0.8); Eosinophils % (auto) 1.8 % (0.0-7.0); Lymphocytes # (auto) 1.2 10 ^3/uL (0.4-5.4); Lymphocytes % (auto) 11.5 % (10.0-50.0); Mean Corpuscular Hemoglobin 31.5 pg (28.0-32.0); Mean Corpuscular Hgb Conc. 34.3 g/dL (32.0-36.0); Monocytes % (auto) 9.9 % (0.0-12.0); Neutrophils # (auto) 7.9 10 ^3/uL (1.6-8.6); Neutrophils % (auto) 76.2 % (37.0-80.0); Red Blood Cells 4.13 10^6/uL (4.0-5.20); Red Cell Distribution Width 13.3 % (11.8-14.3); White Blood Cell 10.4 10^3/uL (4.4-10.8)
[2023-01-10] MEDS: ACCU-CHEK COMFORT CURVE STRIP VI SCH ×3 (06:49→18:20)
[2023-01-10] MEDS: InsuLIN REG 1unit/0.01ml Soln (100units/ml) SC SCH ×3 (06:49→18:20)
[2023-01-10] MEDS: PIPERACILLIN-TAZOB 3.375GM 100 ML IV SCH ×2 (06:54→15:59)
[2023-01-10 09:00] VITALS: BP 136/63; PULSE 78; RESP 14; TEMP 97.9; O2SAT 93
[2023-01-10] MEDS: PANTOPRAZOLE 40 MG/10 ML VIAL INJ IV SCH (09:57)
[2023-01-10 13:00] VITALS: BP 141/63; PULSE 81; RESP 19; TEMP 98; O2SAT 94
[2023-01-10 17:00] VITALS: BP 188/99; PULSE 72; RESP 14; TEMP 98.5; O2SAT 96
[2023-01-10 17:22] VITALS: BP 179/80; PULSE 80
== END 2023-01-10 19:50 | DRG 336 ==
LOC: EDBD 03:18 → ER 03:18 → OVERFLOW 07:13 → WEST WING 12:44 → DOU IN ICU 01-06 17:11 → WEST WING 01-09 23:33
PROVIDERS: ADMIT Internal Medicine; ATTEND Internal Medicine
PROC: 0D9670Z Drainage of Stomach with Drainage Device, Via Natural or Artificial Opening (ICD-10-PCS; 2023-01-05)
PROC: 0WQF0ZZ Repair Abdominal Wall, Open Approach (ICD-10-PCS; principal; 2023-01-08)
PROC: 0DN80ZZ Release Small Intestine, Open Approach (ICD-10-PCS; 2023-01-08)
DX: K43.6 Other and unspecified ventral hernia with obstruction, without gangrene (principal); R65.10 Systemic inflammatory response syndrome (SIRS) of non-infectious origin without acute organ dysfunction; I10 Essential (primary) hypertension; E11.9 Type 2 diabetes mellitus without complications; E78.5 Hyperlipidemia, unspecified; E66.01 Morbid (severe) obesity due to excess calories; Z20.822 Contact with and (suspected) exposure to COVID-19; I25.10 Atherosclerotic heart disease of native coronary artery without angina pectoris; Z82.49 Family history of ischemic heart disease and other diseases of the circulatory system; Z80.8 Family history of malignant neoplasm of other organs or systems; Z85.3 Personal history of malignant neoplasm of breast; Z81.8 Family history of other mental and behavioral disorders; Z79.84 Long term (current) use of oral hypoglycemic drugs; Z68.34 Body mass index [BMI] 34.0-34.9, adult; Z88.5 Allergy status to narcotic agent
CPT/HCPCS: 36415; 71045; 74176; 74250; 80048; 80053; 82962; 83690; 84484; 85025; 85610; 86850; 86900; 86901; 87081; 87426; 96361; 96374; 96375; 96376; 97110; 97116; 97163; 97530; C9113; G0378; J0690; J1100; J1815; J2001; J2250; J2405; J2543; J2704; J3480; J3490

== ENCOUNTER 2023-01-11 15:10 | Inpatient (IN) | payer OTHER ==
[~2023-01-11] VITALS: Ht 160 cm; Wt 87.0 kg
[~2023-01-11 15:10] MED LIST changes: +AMLO1TAB22 PO; -FLUO20CA90 PO; +INSREGI SC; -LEVO750T40 PO; -LISI10TA34 PO; -METF-370 PO; -METO25TA93 PO; -PRAV20TA3 PO; -VALS1TAB57 PO; -VALS40TA2 PO
[2023-01-11 15:59] LABS: Basophils # (auto) 0.2 10 ^3/uL (0-0.2); Basophils % (auto) 1.1 % (0.0-2.0); Eosinophils # (auto) 0 10 ^3/uL (0-0.8); Eosinophils % (auto) 0.2 % (0.0-7.0); Hematocrit 43.7 % (36.0-46.0); Hemoglobin 14.6 g/dL (12.2-16.2); Lymphocytes # (auto) 0.7 10 ^3/uL (0.4-5.4); Mean Corpuscular Hemoglobin 30.6 pg (28.0-32.0); Mean Corpuscular Hgb Conc. 33.3 g/dL (32.0-36.0); Mean Corpuscular Volume 91.8 fL (80.0-100.0); Monocytes # (auto) 1.1 10 ^3/uL (0-1.3); Monocytes % (auto) 8.2 % (0.0-12.0); Neutrophils # (auto) 11.6 10 ^3/uL (1.6-8.6); Neutrophils % (auto) 85.5 % (37.0-80.0); Nucleated Red Blood Cells % 0.1 %; Red Blood Cells 4.77 10^6/uL (4.0-5.20); Red Cell Distribution Width 13.4 % (11.8-14.3); White Blood Cell 13.6 10^3/uL (4.4-10.8)
[2023-01-11 16:29] LABS: Albumin 2.7 g/dL (3.4-5.0); Calcium 9.4 mg/dL (8.5-10.1); Potassium 3.5 mmol/L (3.5-5.1)
[2023-01-11 16:35] LABS: BUN/Creatinine Ratio 14.9 (10.0-20.0); Bilirubin, Total 0.6 mg/dL (0.2-1.0); Magnesium 1.7 mg/dL (1.6-2.6); Total Protein 6.3 g/dL (6.4-8.2)
[2023-01-11] MEDS ORDERED: MORPHINE SULFATE 4 MG/ML SYR/VIAL IV ONE (17:00)
[2023-01-11] MEDS ORDERED: ONDANSETRON HCL 4 MG/2 ML VIAL IV ONE (17:00)
[2023-01-11] MEDS ORDERED: MORPHINE SULFATE INJ 2 MG/ml SYRG IV PRN (17:30)
[2023-01-11] MEDS ORDERED: NITROGLYCERIN 0.4 MG SL TAB SL PRN (17:30)
[2023-01-11] MEDS ORDERED: ONDANSETRON HCL 4 MG/2 ML VIAL IV PRN (17:30)
[2023-01-11] MEDS ORDERED: PIPERACILLIN-TAZOB 3.375GM 100 ML IV ONE (18:00)
[2023-01-11 18:05] VITALS: PULSE 95; RESP 17; O2SAT 95
[2023-01-11 18:36] LABS: INR 1.05 (0.9-1.15)
[2023-01-11 19:20] VITALS: PULSE 90; RESP 18; O2SAT 94
[2023-01-12] VITALS (8 sets, daily range): BP systolic 130–172; BP diastolic 53–75; PULSE 50–81; RESP 16–20; TEMP 97.9–98.8; O2SAT 90–99
[2023-01-12] MEDS: PIPERACILLIN-TAZOB 3.375GM 100 ML IV SCH ×3 (02:20→18:41)
[2023-01-12] MEDS: SOD CHL 0.45% 1,000 ML IV SCH ×3 (02:45→13:30)
[2023-01-12] MEDS: hydrALAZINE HCL 20 MG/ML VL IV PRN ×2 (05:08→16:52)
[2023-01-12 06:36] LABS: Albumin 2.4 g/dL (3.4-5.0); BUN/Creatinine Ratio 13.9 (10.0-20.0); Potassium 3.4 mmol/L (3.5-5.1)
[2023-01-12 06:38] LABS: Basophils # (auto) 0.1 10 ^3/uL (0-0.2); Basophils % (auto) 0.6 % (0.0-2.0); Eosinophils # (auto) 0.2 10 ^3/uL (0-0.8); Eosinophils % (auto) 1.6 % (0.0-7.0); Hematocrit 37.2 % (36.0-46.0); Hemoglobin 12.7 g/dL (12.2-16.2); Lymphocytes # (auto) 1.5 10 ^3/uL (0.4-5.4); Lymphocytes % (auto) 13.9 % (10.0-50.0); Mean Corpuscular Hemoglobin 31.4 pg (28.0-32.0); Mean Corpuscular Hgb Conc. 34.2 g/dL (32.0-36.0); Mean Corpuscular Volume 91.7 fL (80.0-100.0); Monocytes % (auto) 9.3 % (0.0-12.0); Neutrophils # (auto) 7.8 10 ^3/uL (1.6-8.6); Neutrophils % (auto) 74.6 % (37.0-80.0); Red Blood Cells 4.06 10^6/uL (4.0-5.20); Red Cell Distribution Width 13.4 % (11.8-14.3); White Blood Cell 10.5 10^3/uL (4.4-10.8)
[2023-01-12 06:39] LABS: Bilirubin, Total 0.6 mg/dL (0.2-1.0); Total Protein 5.6 g/dL (6.4-8.2)
[2023-01-12] MEDS ORDERED: GASTROGRAFIN 120 ML SOL ONE (10:11)
[2023-01-12] MEDS ORDERED: DEXTROSE (50%) 50ML SYRG IV PRN (15:45)
[2023-01-12] MEDS: InsuLIN REG 1unit/0.01ml Soln (100units/ml) SC SCH ×2 (17:02→22:57)
[2023-01-12] MEDS: ACCU-CHEK COMFORT CURVE STRIP VI SCH ×2 (17:03→22:58)
[2023-01-12] MEDS ORDERED: amLODIPine BESYLATE 5 MG TAB PO ONE (18:15)
[2023-01-12 20:34] LABS: COVID19 ANTIGEN SOFIA FIA NEGATIVE (NEGATIVE)
[2023-01-13] MEDS: PIPERACILLIN-TAZOB 3.375GM 100 ML IV SCH ×3 (02:31→17:16)
[2023-01-13 05:00] VITALS: BP 140/59; PULSE 73; RESP 16; TEMP 99; O2SAT 93
[2023-01-13 06:03] LABS: Basophils # (auto) 0.1 10 ^3/uL (0-0.2); Basophils % (auto) 0.6 % (0.0-2.0); Eosinophils # (auto) 0.3 10 ^3/uL (0-0.8); Eosinophils % (auto) 2.1 % (0.0-7.0); Hematocrit 36.7 % (36.0-46.0); Hemoglobin 12.4 g/dL (12.2-16.2); Lymphocytes # (auto) 1.2 10 ^3/uL (0.4-5.4); Lymphocytes % (auto) 8.9 % (10.0-50.0); Mean Corpuscular Hemoglobin 30.8 pg (28.0-32.0); Mean Corpuscular Hgb Conc. 33.6 g/dL (32.0-36.0); Mean Corpuscular Volume 91.5 fL (80.0-100.0); Monocytes % (auto) 7.5 % (0.0-12.0); Neutrophils # (auto) 10.9 10 ^3/uL (1.6-8.6); Neutrophils % (auto) 80.9 % (37.0-80.0); Red Blood Cells 4.01 10^6/uL (4.0-5.20); Red Cell Distribution Width 13.3 % (11.8-14.3); White Blood Cell 13.4 10^3/uL (4.4-10.8)
[2023-01-13 06:15] LABS: Albumin 2.4 g/dL (3.4-5.0); Calcium 8.7 mg/dL (8.5-10.1); Potassium 3.5 mmol/L (3.5-5.1)
[2023-01-13 06:20] LABS: Bilirubin, Total 0.5 mg/dL (0.2-1.0); Total Protein 5.5 g/dL (6.4-8.2)
[2023-01-13] MEDS: ACCU-CHEK COMFORT CURVE STRIP VI SCH ×4 (06:40→22:12)
[2023-01-13] MEDS: InsuLIN REG 1unit/0.01ml Soln (100units/ml) SC SCH ×4 (06:41→22:11)
[2023-01-13 09:00] VITALS: BP 134/68; PULSE 67; RESP 18; TEMP 98.6; O2SAT 97
[2023-01-13] MEDS: amLODIPine BESYLATE 5 MG TAB PO SCH (10:42)
[2023-01-13 13:00] VITALS: BP 131/64; PULSE 64; RESP 18; TEMP 98.1; O2SAT 95
[2023-01-13 16:48] VITALS: BP 134/55; PULSE 63; RESP 17; TEMP 97.9; O2SAT 94
[2023-01-13 20:00] VITALS: PULSE 70; RESP 18; O2SAT 94
[2023-01-13 22:00] VITALS: BP 149/54; PULSE 70; RESP 18; TEMP 98.4; O2SAT 94
[2023-01-13] MEDS ORDERED: KETOCONAZOLE 2 % TOPICAL CREAM 15GM TOP SCH (22:00)
[2023-01-13] MEDS ORDERED: HYDROCORTONE 1% TOPICAL CREAM 30 GM TUBE TOP SCH (22:00)
[2023-01-14] MEDS: PIPERACILLIN-TAZOB 3.375GM 100 ML IV SCH ×2 (02:27→09:00)
[2023-01-14 06:30] VITALS: BP 180/68; PULSE 69; RESP 18; TEMP 98.4; O2SAT 94
[2023-01-14 06:31] LABS: Potassium 3.7 mmol/L (3.5-5.1)
[2023-01-14] MEDS: ACCU-CHEK COMFORT CURVE STRIP VI SCH ×2 (06:33→11:10)
[2023-01-14 06:36] LABS: Albumin 2.6 g/dL (3.4-5.0); BUN/Creatinine Ratio 16.9 (10.0-20.0); Calcium 8.9 mg/dL (8.5-10.1)
[2023-01-14 06:43] LABS: Basophils # (auto) 0.1 10 ^3/uL (0-0.2); Basophils % (auto) 0.7 % (0.0-2.0); Eosinophils # (auto) 0.3 10 ^3/uL (0-0.8); Eosinophils % (auto) 2.4 % (0.0-7.0); Hematocrit 37.5 % (36.0-46.0); Hemoglobin 12.5 g/dL (12.2-16.2); Lymphocytes # (auto) 1.6 10 ^3/uL (0.4-5.4); Lymphocytes % (auto) 12.5 % (10.0-50.0); Mean Corpuscular Hemoglobin 30.7 pg (28.0-32.0); Mean Corpuscular Hgb Conc. 33.4 g/dL (32.0-36.0); Mean Corpuscular Volume 91.8 fL (80.0-100.0); Monocytes # (auto) 0.9 10 ^3/uL (0-1.3); Neutrophils # (auto) 9.7 10 ^3/uL (1.6-8.6); Neutrophils % (auto) 77.4 % (37.0-80.0); Nucleated Red Blood Cells % 0.1 %; Red Blood Cells 4.08 10^6/uL (4.0-5.20); Red Cell Distribution Width 13.4 % (11.8-14.3); White Blood Cell 12.5 10^3/uL (4.4-10.8)
[2023-01-14] MEDS: InsuLIN REG 1unit/0.01ml Soln (100units/ml) SC SCH ×2 (07:04→11:11)
[2023-01-14 07:07] LABS: Bilirubin, Total 0.3 mg/dL (0.2-1.0); Total Protein 5.9 g/dL (6.4-8.2)
[2023-01-14] MEDS: hydrALAZINE HCL 20 MG/ML VL IV PRN (07:07)
[2023-01-14 09:00] VITALS: BP 139/60; PULSE 64; RESP 16; TEMP 98.1; O2SAT 95
[2023-01-14] MEDS: amLODIPine BESYLATE 5 MG TAB PO SCH (09:01)
[2023-01-14 10:50] VITALS: BP 139/60; PULSE 64; RESP 16; TEMP 98.1; O2SAT 95
[2023-01-14 12:55] VITALS: BP 130/65; PULSE 73; RESP 16; TEMP 98.2; O2SAT 96
== END 2023-01-14 16:05 | DRG 392 ==
LOC: ER 15:10 → EDBD 15:10 → OVERFLOW 17:24 → WEST WING 21:39
PROVIDERS: ADMIT Internal Medicine; ATTEND Internal Medicine
DX: R10.9 Unspecified abdominal pain (principal); I16.1 Hypertensive emergency; E11.9 Type 2 diabetes mellitus without complications; Z20.822 Contact with and (suspected) exposure to COVID-19; E78.00 Pure hypercholesterolemia, unspecified; F32.A Depression, unspecified; F10.20 Alcohol dependence, uncomplicated; Y90.9 Presence of alcohol in blood, level not specified; Z79.899 Other long term (current) drug therapy; Z79.4 Long term (current) use of insulin; Z88.5 Allergy status to narcotic agent; Z80.8 Family history of malignant neoplasm of other organs or systems; Z81.8 Family history of other mental and behavioral disorders; Z82.49 Family history of ischemic heart disease and other diseases of the circulatory system
CPT/HCPCS: 36415; 74176; 74250; 80053; 82962; 83690; 83735; 85025; 85610; 87040; 87081; 87426; 93005; 96365; 96366; 96375; 97163; G0378; J1815; J2405; J2543

== ENCOUNTER 2023-04-09 10:06 | Emergency (ER) | payer OTHER ==
[~2023-04-09] VITALS: Ht 160 cm; Wt 82.0 kg
[2023-04-09] MEDS ORDERED: MORPHINE SULFATE INJ 2 MG/ml SYRG IV ONE (10:30)
[2023-04-09] MEDS ORDERED: ONDANSETRON HCL 4 MG/2 ML VIAL IV ONE (10:30)
[2023-04-09 10:40] LABS: Basophils # (auto) 0.1 10 ^3/uL (0-0.2); Basophils % (auto) 0.8 % (0.0-2.0); Eosinophils # (auto) 0 10 ^3/uL (0-0.8); Eosinophils % (auto) 0.3 % (0.0-7.0); Hematocrit 44.7 % (36.0-46.0); Hemoglobin 15.2 g/dL (12.2-16.2); Lymphocytes % (auto) 8.8 % (10.0-50.0); Mean Corpuscular Hemoglobin 31.3 pg (28.0-32.0); Mean Corpuscular Hgb Conc. 34.1 g/dL (32.0-36.0); Mean Corpuscular Volume 91.9 fL (80.0-100.0); Monocytes # (auto) 0.4 10 ^3/uL (0-1.3); Monocytes % (auto) 3.7 % (0.0-12.0); Neutrophils # (auto) 9.5 10 ^3/uL (1.6-8.6); Neutrophils % (auto) 86.4 % (37.0-80.0); Red Blood Cells 4.86 10^6/uL (4.0-5.20); Red Cell Distribution Width 14.5 % (11.8-14.3)
[2023-04-09 11:08] LABS: Alanine Aminotransferase 22 U/L (7-40); Albumin 4.6 g/dL (3.2-4.8); Alkaline Phosphatase 112 U/L (46-116); Anion Gap 13 (5-15); Aspartate Aminotransferase 15 U/L (13-40); BUN/Creatinine Ratio 21.3 (10.0-20.0); Blood Urea Nitrogen 20 mg/dL (9-23); Calcium 10.4 mg/dL (8.5-10.1); Carbon Dioxide 22 mmol/L (20-30); Chloride 102 mmol/L (98-107); Glucose 237 mg/dL (74-106); Potassium 3.8 mmol/L (3.5-5.1); Sodium 137 mmol/L (136-145)
[2023-04-09 11:09] LABS: Bilirubin, Total 0.6 mg/dL (0.2-1.0); Total Protein 7.4 g/dL (5.7-8.2)
[2023-04-09 12:04] LABS: INR 1.03 (0.9-1.15); Partial Thromboplastin Time 30.6 SEC (24.5-34.5); Prothrombin Time 10.8 sec (9.3-11.8)
[2023-04-09] MEDS ORDERED: CEPH250C PO (15:41)
[2023-04-09 21:00] VITALS: PULSE 102; RESP 16; O2SAT 98
[2023-04-10] MEDS ORDERED: ZOFR4T PO (00:35)
[2023-04-10 00:50] VITALS: BP 153/85; PULSE 82; RESP 18; TEMP 97.8; O2SAT 96
[2023-04-10] MEDS ORDERED: ONDANSETRON HCL 4 MG/2 ML VIAL IV ONE (01:15)
[2023-04-10 01:30] LABS: Urine Bacteria NONE SEEN /hpf (None Seen); Urine Blood 1+ /uL (Negative); Urine Clarity Clear (Clear); Urine Color Colorless (Yellow); Urine Protein, UAD 2+ (Negative); Urine Specific Gravity 1.012 (1.001-1.035); Urine Urobilinogen Normal (Negative); Urine WBC 3 /hpf (0 - 5); Urine pH 6.5 (5.0-8.0)
== END 2023-04-10 02:43 | disposition home or self-care (01) ==
LOC: ER 10:06 → EDBD 10:06 → ER 04-10 02:43
DX: S20.312A Abrasion of left front wall of thorax, initial encounter (principal); K80.50 Calculus of bile duct without cholangitis or cholecystitis without obstruction; E11.9 Type 2 diabetes mellitus without complications; E78.5 Hyperlipidemia, unspecified; I10 Essential (primary) hypertension; Z88.6 Allergy status to analgesic agent; W18.39XA Other fall on same level, initial encounter; Y93.89 Activity, other specified; Y92.89 Other specified places as the place of occurrence of the external cause; Y99.8 Other external cause status
CPT/HCPCS: 36415; 71250; 72192; 74176; 76705; 80053; 81001; 84484; 85025; 85610; 85730; 93005; 96374; 96375; 96376; 99285; J2270; J2405